=== PATIENT | male | born 2000 | race Caucasian/White ===

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

== ENCOUNTER 2018-06-12 20:45 | Emergency (ER) | payer BC ==
[~2018-06-12 20:45] MED LIST changes: +MONT10TA PO; +RANI-366 PO
--- NOTE | 2018-06-12 20:47 | ER Report ---
History and Physical Time Seen By MD: 20:46 HPI/ROS CHIEF COMPLAINT: Allergic reaction HISTORY OF PRESENT ILLNESS: This is a 18-year-old male. He is having tightness in his throat and rash and itching on his face and upper neck. No swelling of the tongue or lips. He is having some trouble swallowing. Breathing with some tightness. No chest pain. Unsure what the allergic reaction was caused by. Allergies: Coded Allergies: peppermint (Verified Allergy, Severe, 06/12/18) sulfamethoxazole (Verified Allergy, Intermediate, 06/12/18) trimethoprim (Verified Allergy, Intermediate, 06/12/18) Uncoded Allergies: WD40 (Allergy, Intermediate, 10/04/17) Home Meds Active Scripts Epinephrine (EPIPEN 2-FOREST) 0.3 Mg/0.3 Ml Pen.injctr, 0.3 MG IM PRN, #1 PACK Prov:TATIANA JURADO [employer] 10/06/17 Reported Medications Ranitidine Hcl (ZANTAC) 150 Mg Tablet, 150 MG PO BID, TAB 12/13/17 Albuterol Sulfate 90 Mcg/Act (PROAIR HFA 90 MCG/ACT) 8.5 Gm Hfa.aer.ad, 1-2 PUFF IH 3-4XD, INHALER 10/04/17 Fluticasone Prop 50 Mcg Ns (FLONASE 50 MCG NS) 16 Gm [place].susp, 1 SPRAY NS BID, BOT 10/04/17 Discontinued Reported Medications Montelukast Sodium (SINGULAIR) 10 Mg Tablet, 5 MG PO QDAY, TAB 12/13/17 Cetirizine Hcl (ZYRTEC) 10 Mg Capsule, 10 MG PO QDAY, CAPSULE 10/13/17 Reviewed Nurses Notes: Yes Hx Substance Use Disorder: No Constitutional Vital Sign - Last 24 Hours 06/12/18 06/12/18 06/12/18 20:48 21:56 22:16 Temp 98.5 Pulse 76 85 Resp 18 12 16 B/P (MAP) 127/74 118/71 (87) 118/72 (87) Pulse Ox 96 97 95 O2 Delivery Room Air Room Air Room Air Intake and Output0 06/12/18 06/12/18 06/13/18 15:00 23:00 07:00 Intake Total 1050 ml Balance 1050 ml Physical Exam General Appearance: The patient is alert, has no immediate need for airway protection and no current signs of toxicity. Eyes: Pupils equal and round no injection. ENT: Normal oral mucosa. Moist mucous membranes. No swelling of the lips or tongue. Normal posterior oropharynx. Neck: Neck is supple and non tender. Respiratory: Chest is non tender, lungs are clear to auscultation. Cardiac: regular rate and rhythm Skin: Skin with redness in the face and upper neck. No other hives or rash noted DIFFERENTIAL DIAGNOSIS: After history and physical exam differential diagnosis was considered for allergic reaction, unknown cause Medical Decision Making ED Course/Re-evaluation Clinical Indication for ER IV: Hydration, IV Access ED Course IV started. Patient with improvement with Solu-Medrol 125 mg IV, Benadryl 50 mg IV, and episode 20 mg IV. Also given a liter of normal saline. Started on prednisone 40 mg one dose now and one dose tomorrow. Decision to Disposition Date: Jun 12, 2018 Decision to Disposition Time: 22:06 Depart Departure Latest Vital Signs Vital Signs Date Time Temp Pulse Resp B/P (MAP) Pulse Ox O2 Delivery O2 Flow Rate FiO2 06/12/18 22:16 85 16 118/72 (87) 95 Room Air 06/12/18 20:48 98.5 Impression: Primary Impression: Allergic reaction Condition: Improved Disposition: HOME OR SELF-CARE Patient Instructions: General Allergic Reaction (ED) Additional Instructions: Prednisone 20mg tablets, 2 tablets in the morning. Take Benadryl 25mg tablets 1-2 tablets every 6 hours as needed for allergic symptoms (rash, itching) Problem Qualifiers Primary Impression: Allergic reaction Encounter type: initial encounter Qualified Codes: T78.40XA - Allergy, unspecified, initial encounter ROD PEÑALOZA MD Jun 12, 2018 20:46
[2018-06-12] MEDS ORDERED: diphenhydrAMINE 50 MG/ML VIAL IVP ONE (20:50)
[2018-06-12] MEDS ORDERED: FAMOTIDINE(*) 20MG/50ML PREMIX 50 ML IVPB ONE (20:50)
[2018-06-12] MEDS ORDERED: NS(*) 0.9% 1000 ML BAG 1,000 ML IV ONE (20:50)
[2018-06-12] MEDS ORDERED: methylPREDNIS SUCC 125 MG/2ML IVP ONE (20:50)
[2018-06-12] MEDS ORDERED: predniSONE 20 MG TAB PO ONE (22:10)
[2018-06-12 22:16] VITALS: BP 118/72
== END 2018-06-12 22:21 | disposition home or self-care (01) ==
LOC: ER 20:55
DX: T78.40XA Allergy, unspecified, initial encounter (principal)
CPT/HCPCS: 96365; 96375; 99284; J1200; J2930; J3490; J7030; J7512

== ENCOUNTER → 2018-08-05 | Outpatient (CLI) | payer BC ==
[~2018-08-05] MED LIST changes: +OMALIZUMAB 150 MG SVD SQ ONE
[2018-08-05 14:34] VITALS: BP 110/71
== END ==
LOC: SPU 08:58
PROVIDERS: ATTEND Allergy & Immunology
DX: L50.9 Urticaria, unspecified (principal)
CPT/HCPCS: J2357 ×2; 96372

== ENCOUNTER → 2018-10-01 | Outpatient (CLI) | payer BC ==
[~2018-10-01] MED LIST changes: -OMALIZUMAB 150 MG SVD SQ ONE; +OMALIZUMAB 150 MG SVD SQ PRN
[2018-10-01 13:15] VITALS: BP 125/63
== END ==
LOC: SPU 07:41
PROVIDERS: ATTEND Allergy & Immunology
DX: L50.9 Urticaria, unspecified (principal)
CPT/HCPCS: J2357 ×2; 96372

== ENCOUNTER → 2018-10-29 | Outpatient (CLI) | payer BC ==
[~2018-10-29] MED LIST changes: +OMALIZUMAB 150 MG SVD SQ ONE; -OMALIZUMAB 150 MG SVD SQ PRN
[2018-10-29 16:07] VITALS: BP 136/87
== END ==
LOC: SPU 08:53
PROVIDERS: ATTEND Allergy & Immunology
DX: L50.9 Urticaria, unspecified (principal)
CPT/HCPCS: 96372; J2357

== ENCOUNTER 2018-11-26 15:30 | Outpatient (RCR) | payer BC ==
[~2018-11-26 15:30] MED LIST changes: -RANI-366 PO; +RANI-54 PO
[2018-11-26 15:44] VITALS: BP 123/81
[2019-01-14] MEDS ORDERED: MONT10TA PO (14:00)
[2019-01-14] MEDS ORDERED: CETI10CA8 PO (14:00)
[2019-01-14] MEDS ORDERED: AMOX-559 PO (14:43)
[2019-01-24] MEDS ORDERED: EPIN0.3P3 IM (15:50)
[2019-01-24] MEDS ORDERED: PRED50TA22 PO (15:50)
== END 2019-02-07 16:35 | disposition home or self-care (01) ==
LOC: SPU 15:30
PROVIDERS: ATTEND Allergy & Immunology
DX: L50.9 Urticaria, unspecified (principal)
CPT/HCPCS: 96372; J2357

== ENCOUNTER 2019-01-14 13:42 | Emergency (ER) | payer BC ==
[~2019-01-14 13:42] MED LIST changes: -OMALIZUMAB 150 MG SVD SQ ONE; +RANI-366 PO; -RANI-54 PO
[2019-01-14 13:51] VITALS: BP 142/90
--- NOTE | 2019-01-14 13:52 | ER Report ---
History and Physical Time Seen By MD: 13:52 HPI/ROS CHIEF COMPLAINT: Headache, sore throat HISTORY OF PRESENT ILLNESS: 18-year-old male patient presents to emergency room with complaint of headache and sore throat. Patient states that he has had the headache for the past 5-6 days. He states that he has had a sore throat for the last 2 or 3. He states he is not been able to eat or drink because of his throat hurting so bad. Patient states that he felt feverish yesterday, both was afebrile when he checked his temperature. He denies any nausea, vomiting or diarrhea. Patient states he has had significant amounts of coughing. He denies having any sinus congestion. REVIEW OF SYSTEMS: Respiratory: As noted above Cardiovascular: No chest pain, no palpitations. Gastrointestinal: No vomiting, no abdominal pain. Musculoskeletal: No back pain. Allergies: Coded Allergies: peppermint (Verified Allergy, Severe, 01/14/19) sulfamethoxazole (Verified Allergy, Intermediate, 01/14/19) trimethoprim (Verified Allergy, Intermediate, 01/14/19) Uncoded Allergies: WD40 (Allergy, Intermediate, 10/04/17) Home Meds Active Scripts Amoxicillin/Pot Clav 875-125 Mg Tab (AUGMENTIN 875-125 TABLET) 1 Each Tablet, 1 TAB PO Q12H, #14 TAB Prov:YAMINI OWENS [employer] 01/14/19 Epinephrine (EPIPEN 2-FOREST) 0.3 Mg/0.3 Ml Pen.injctr, 0.3 MG IM PRN, #1 PACK Prov:TATIANA JURADO [employer]-BC 10/06/17 Reported Medications Montelukast Sodium (SINGULAIR) 10 Mg Tablet, 1 TAB PO QDAY, TAB 01/14/19 Cetirizine Hcl (ZYRTEC) 10 Mg Capsule, 10 MG PO QDAY, CAPSULE 01/14/19 Ranitidine Hcl (ZANTAC) 150 Mg Tablet, 150 MG PO BID, TAB 12/13/17 Albuterol Sulfate 90 Mcg/Act (PROAIR HFA 90 MCG/ACT) 8.5 Gm Hfa.aer.ad, 1-2 PUFF IH 3-4XD, INHALER 10/04/17 Fluticasone Prop 50 Mcg Ns (FLONASE 50 MCG NS) 16 Gm [place].susp, 1 SPRAY NS BID, BOT 10/04/17 Past Medical/Surgical History Patient has a past medical history of heart murmur, or drug reaction, asthma, rash. Patient has a surgical history of a testicular torsion repair Reviewed Nurses Notes: Yes Hx Substance Use Disorder: No Constitutional Vital Sign - Last 24 Hours 01/14/19 13:51 Temp 100.4 Pulse 100 Resp 16 B/P (MAP) 142/90 Pulse Ox 94 O2 Delivery Room Air Physical Exam General Appearance: The patient is alert, has no immediate need for airway protection and no current signs of toxicity. ENT: Tympanic membranes are pearly-cohn, auditory canals are patent, mucous membranes are moist. Respiratory: Chest is non tender, lungs are clear to auscultation. Cardiac: regular rate and rhythm Gastrointestinal: Abdomen is soft and non tender, no masses, bowel sounds normal. Musculoskeletal: Neck: Neck is supple and non tender. Extremities have full range of motion and are non tender. Skin: No rashes or lesions. DIFFERENTIAL DIAGNOSIS: After history and physical exam differential diagnosis was considered for strep pharyngitis, acute pharyngitis, sinusitis, upper respiratory infection. Medical Decision Making Data Points Laboratory Hematology Test 01/14/19 13:56 Group A Streptococcus (PCR) Negative (NEGATIVE) Chemistry Test 01/14/19 13:56 Group A Streptococcus (PCR) Negative (NEGATIVE) ED Course/Re-evaluation ED Course Patient was admitted to an exam room, history and physical were obtained. Differential diagnoses were considered. On examination lungs are clear, heart is regular, abdomen is soft and nontender. On exam bilateral nares are erythematous, patient does have some exudate on his tonsils. A strep screen was obtained. I did obtain that I was able to get a large bit of mucus the back of throat. I believe that this is likely a sinusitis with the cough, the fevers and the sore throat with mucus drainage. Strep screen did come back positive. We will go ahead and treat him with Augmentin 875/125. Patient did ask if I felt that this could be mono. At this time with the cough, the mucus and patient having sniffling the entire time that I was in the room my belief is that the nose is likely the source of problem. However I discussed that there is no improvement in the next 7 days patient should follow-up with his primary care provider, [facility], for a Monospot. Patient verbalized understanding and agreement with plan. Decision to Disposition Date: January 14, 2019 Decision to Disposition Time: 14:44 Depart Departure Latest Vital Signs Vital Signs Date Time Temp Pulse Resp B/P (MAP) Pulse Ox O2 Delivery O2 Flow Rate FiO2 01/14/19 13:51 100.4 100 16 142/90 94 Room Air Impression: Primary Impression: Sinusitis Condition: Improved Disposition: HOME OR SELF-CARE New Scripts Amoxicillin/Pot Clav 875-125 Mg Tab (AUGMENTIN 875-125 TABLET) 1 Each Tablet 1 TAB PO Q12H, #14 TAB Prov: YAMINI OWENS 01/14/19 Patient Instructions: Sinusitis (ED) Additional Instructions: Increase fluid intake. Get plenty of rest. Take medication as prescribed. Follow up with [facility] or your primary care provider in the next week. Return to the ER if condition worsens. Problem Qualifiers Primary Impression: Sinusitis Sinusitis location: pansinusitis Chronicity: acute Recurrence: non- recurrent Qualified Codes: J01.40 - Acute pansinusitis, unspecified YAMINI OWENS January 14, 2019 13:52
[2019-01-14] MEDS ORDERED: MONT10TA PO (14:00)
[2019-01-14] MEDS ORDERED: CETI10CA8 PO (14:00)
[2019-01-14] MEDS ORDERED: AMOX-559 PO (14:43)
== END 2019-01-14 14:56 | disposition home or self-care (01) ==
LOC: ER 13:58
DX: J01.40 Acute pansinusitis, unspecified (principal)
CPT/HCPCS: 87653; 99282

== ENCOUNTER 2019-01-24 14:34 | Emergency (ER) | payer BC ==
[~2019-01-24 14:34] MED LIST changes: +AMOX-559 PO
--- NOTE | 2019-01-24 14:47 | ER Report ---
History and Physical Time Seen By MD: 14:47 Hx. of Stated Complaint: ALLERGIC REACTION TO UNKNOWN SUBSTANCE. PATIENT USED HIS EPI-PEN AT HOME HPI/ROS CHIEF COMPLAINT: Allergic reaction HISTORY OF PRESENT ILLNESS: Patient is a 18-year-old male with a history of anaphylactic reactions with unknown triggers. Patient administered 1 epinephrine pen prior to arrival due to diffuse urticaria, pruritus, difficulty breathing which has almost completely resolved by time of arrival. Patient is alert and oriented, no signs of stridor, wheezing or airway edema. Patient is followed by an allergenist in [place] and takes multiple antihistamines and allergy medications in the morning, ranitidine. REVIEW OF SYSTEMS: Constitutional: No fever, no chills. Eyes: No discharge. ENT: No airway edema or erythema Cardiovascular: No chest pain, no palpitations. Respiratory: Resolved shortness breath, no stridor, no wheezing Gastrointestinal: No abdominal pain, no vomiting. Genitourinary: No hematuria. Musculoskeletal: No back pain. Skin: Diffuse urticaria resolved, pruritus Neurological: No headache. Allergies: Coded Allergies: peppermint (Verified Allergy, Severe, 01/14/19) sulfamethoxazole (Verified Allergy, Intermediate, 01/14/19) trimethoprim (Verified Allergy, Intermediate, 01/14/19) Uncoded Allergies: WD40 (Allergy, Intermediate, 10/04/17) Home Meds Active Scripts Amoxicillin/Pot Clav 875-125 Mg Tab (AUGMENTIN 875-125 TABLET) 1 Each Tablet, 1 TAB PO Q12H, #14 TAB Prov:YAMINI OWENS [employer] 01/14/19 Epinephrine (EPIPEN 2-FOREST) 0.3 Mg/0.3 Ml Pen.injctr, 0.3 MG IM PRN, #1 PACK Prov:TATIANA JURADO [employer]-BC 10/06/17 Reported Medications Montelukast Sodium (SINGULAIR) 10 Mg Tablet, 1 TAB PO QDAY, TAB 01/14/19 Cetirizine Hcl (ZYRTEC) 10 Mg Capsule, 10 MG PO QDAY, CAPSULE 01/14/19 Ranitidine Hcl (ZANTAC) 150 Mg Tablet, 150 MG PO BID, TAB 12/13/17 Albuterol Sulfate 90 Mcg/Act (PROAIR HFA 90 MCG/ACT) 8.5 Gm Hfa.aer.ad, 1-2 PUFF IH 3-4XD, INHALER 10/04/17 Fluticasone Prop 50 Mcg Ns (FLONASE 50 MCG NS) 16 Gm [place].susp, 1 SPRAY NS BID, BOT 10/04/17 Hx Substance Use Disorder: No Constitutional Vital Sign - Last 24 Hours 01/24/19 14:38 Temp 97.8 Pulse 102 Resp 24 B/P (MAP) 118/63 Pulse Ox 93 O2 Delivery Room Air Physical Exam General Appearance: The patient is alert, has no immediate need for airway protection and no signs of toxicity. No acute distress Eyes: Pupils equal and round no pallor or injection. ENT, Mouth: Mucous membranes are moist. Respiratory: There are no retractions, lungs are clear to auscultation. Cardiovascular: Regular rate and rhythm. Gastrointestinal: Abdomen is soft and non tender, no masses, bowel sounds normal. Neurological: Alert and oriented, moving all extremities Skin: Faint resolved urticaria Musculoskeletal: Neck is supple non tender. Extremities are nontender, nonswollen and have full range of motion. [ ] DIFFERENTIAL DIAGNOSIS: After history and physical exam differential diagnosis was considered for anaphylactoid reaction due to unknown etiology. Medical Decision Making ED Course/Re-evaluation ED Course Patient is a 18-year-old male here with complaints of recurrent allergic reactions which or anaphylactoid in nature. Patient administered an EpiPen prior to arrival with near complete resolution of symptoms. Patient was given 60 mg of prednisone, Benadryl 50 mg with no recurrence of wheezing, stridor, urticaria. Patient is followed in the outpatient setting by an Allergenist. Patient is afebrile at time of evaluation, given scripts for prednisone, EpiPen. Recommend close PCP follow-up. Decision to Disposition Date: January 24, 2019 Decision to Disposition Time: 15:46 Depart Departure Latest Vital Signs Vital Signs Date Time Temp Pulse Resp B/P (MAP) Pulse Ox O2 Delivery O2 Flow Rate FiO2 01/24/19 14:38 97.8 102 24 118/63 93 Room Air Impression: Primary Impression: Anaphylactoid reaction Condition: Improved Disposition: HOME OR SELF-CARE New Scripts Epinephrine (EPINEPHRINE) 0.3 Mg/0.3 Ml Pen.injctr 0.3 MG IM Q15MIN PRN for ANAPHYLAXIS, #1 PACK Prov: BRUCE LIN DO 01/24/19 Prednisone (PREDNISONE) 50 Mg Tablet 50 MG PO QDAY for 4 Days, #4 TAB Prov: BRUCE LIN DO 01/24/19 Patient Instructions: General Allergic Reaction (ED) Additional Instructions: Please take prednisone 50 mg daily for the next 4 days. Please administer epinephrine as needed for anaphylaxis. Please return promptly if you develop difficulty breathing, difficulty swallowing, wheezing, high pitched breathing, recurrent rash, nausea, vomiting. Please follow-up with your family doctor in the next 24-48 hours for reevaluation. BRUCE LIN DO January 24, 2019 14:47
[2019-01-24] MEDS ORDERED: diphenhydrAMINE 25 MG CAP PO ONE (14:50)
[2019-01-24] MEDS ORDERED: predniSONE 20 MG TAB PO ONE (14:50)
[2019-01-24] MEDS ORDERED: EPIN0.3P3 IM (15:50)
[2019-01-24] MEDS ORDERED: PRED50TA22 PO (15:50)
[2019-01-24 16:00] VITALS: BP 115/58
== END 2019-01-24 16:13 | disposition home or self-care (01) ==
LOC: ER 15:00
DX: T78.2XXA Anaphylactic shock, unspecified, initial encounter (principal)
CPT/HCPCS: 99283; J7512; Q0163